=== PATIENT | male | born 1995 | race Caucasian/White ===

== ENCOUNTER 2023-09-25 09:45 | Emergency (ER) | payer SELFPAY ==
[2023-09-25 09:56] VITALS: BP 134/76; PULSE 84; RESP 16; TEMP 36.5; O2SAT 100; BMI 23.0
[2023-09-25] MEDS: FLUORESCEIN SODIUM 1 MG STRIP OP (10:05)
[2023-09-25] MEDS: TETRACAINE HCL 0.5% OP SOL 80 DROP/4 ML BOTTLE OP (10:05)
--- NOTE | 2023-09-25 10:19 | ED_ITS ---
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 He got something into the right eye and has a retained corneal foreign body. Patient does not wear glasses or contacts. Complains of pain to the right eye. Related Data Previous Rx's Medication Instructions Recorded erythromycin 5 mg/gram (0.5 %) eye 0.5 inch ophthalmic (eye) QID #3.5 09/25/23 ointment grams Allergies Allergy/AdvReac Type Severity Reaction Status Date / Time amoxicillin Allergy Verified 09/25/23 09:56 PFSH PFS Social History Smoking status: Former smoker Exam Narrative Exam Narrative: General: The patient appears well and in no apparent distress. Patient is resting comfortably on cart. Skin: Warm, dry, no pallor noted. Head: Normocephalic, atraumatic Neck: Supple, trachea mid-line, no tenderness, no lymphadenopathy Eye: Normal extraocular motion without associated pain. Pupils equal, round and reactive to light. Conjunctival injection noted. No swelling of the upper/lower eyelid. Patient's upper eyelid was everted - no evidence of foreign body. he has a foreign body in the right lower cornea. The patient had TETRACAINE applied to the right eye with fluorescein dye instilled afterward. Exam with Wood's lamp showed uptake at the right lower cornea. No evidence of hyphema, dendritic lesion, corneal ulcerations, preseptal cellulitis or orbital cellulitis. Ears, Nose, Mouth, and Throat: oral mucosa is moist Respiratory: Patient is in no distress Neurological: A&O x4, normal speech Psychiatric: Cooperative and interactive. Constitutional Vital Signs, click to edit/add: Last Vital Signs Temp 97.7 F 09/25/23 09:56 Pulse 84 09/25/23 09:56 Resp 16 09/25/23 09:56 BP 134/76 09/25/23 09:56 Pulse Ox 100 09/25/23 09:56 O2 Del Method Room Air 09/25/23 09:56 Course Vital Signs Vital signs: Vital Signs Temperature 97.7 F 09/25/23 09:56 Pulse Rate 84 09/25/23 09:56 Respiratory Rate 16 09/25/23 09:56 Blood Pressure 134/76 09/25/23 09:56 Pulse Oximetry 100 09/25/23 09:56 Oxygen Delivery Method Room Air 09/25/23 09:56 Temperature 97.7 F 09/25/23 09:56 Pulse Rate 84 09/25/23 09:56 Respiratory Rate 16 09/25/23 09:56 Blood Pressure 134/76 09/25/23 09:56 Pulse Oximetry 100 09/25/23 09:56 Oxygen Delivery Method Room Air 09/25/23 09:56 MDM - Eye Problem MDM Narrative Medical decision making narrative: Removede the foreign body with the tip of an 18 gauge needle - large amount of material and deeply embedded in the eye. Patient tolerated the procedure. He was discharged home with prescription for erythromycin ophth ointment and referral to [facility] in [facility] Dr Barrientos's office. Discharge Plan Discharge Chief Complaint: Eye Problems Clinical Impression: Foreign body in eye, Corneal abrasion Patient Disposition: Home, Self-Care Time of Disposition Decision: 10:23 Mode of Transportation: Private Vehicle Prescriptions / Home Meds: New erythromycin 5 mg/gram (0.5 %) ointment 0.5 inch ophthalmic (eye) QID Qty: 3.5 0RF Rx Instructions: right eye Instructions: Corneal Abrasion (ED), Eye Foreign Body (ED) Stand Alone Forms: Portal Instructions Referrals: Raymundo Barrientos MD [Physician] - 09/25/23 ([phone] - office at [address] [place] [address], [id number])
== END 2023-09-25 10:32 | disposition home or self-care (01) ==
PROVIDERS: Emergency Provider Emergency Medicine; PCP Family Medicine
DX: T15.01XA Foreign body in cornea, right eye, initial encounter (principal); Z87.891 Personal history of nicotine dependence
CPT/HCPCS: 65220; 99283